=== PATIENT | male | born 1965 | race Caucasian/White ===

== ENCOUNTER 2016-03-17 15:24 | Emergency (ER) | payer BC ==
[~2016-03-17] VITALS: Ht 149.9 cm; Wt 54.6 kg
[2016-03-17 15:42] VITALS: Ht 149.9 cm; Wt 54.6 kg
[2016-03-17] MEDS ORDERED: IBUP-1542 PO (17:39)
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
--- NOTE | 2016-03-17 18:12 | RADRPT ---
PROCEDURE: XR left knee. CLINICAL INDICATION: Knee pain TECHNIQUE: AP, PA and lateral views are available for review. COMPARISON: None available FINDINGS: There is a 4 mm calcified loose body in the posterior joint. The osseous structures are normal in mineralization, architecture and alignment. No fractures are i dentified. No osseous lesions are identified. The joints are unremarkable. The soft tissues are u nremarkable. IMPRESSION: 4 mm calcified loose body in the posterior joint. Otherwise unremarkable examination RPTAT: [facility] .Yon Engle MD, MD Date Time Electronically viewed and signed by .Yon Engle MD, on 03/17/2016 18:03 .B/
--- NOTE | 2016-03-17 18:12 | RADRPT ---
PROCEDURE: XR left forearm. CLINICAL INDICATION: Pain. TECHNIQUE: AP and lateral views of the forearm were obtained. COMPARISON: No prior studies are available for comparison. FINDINGS: There is normal mineralization and alignment. No fracture or osseous lesion is identified. The joint s are unremarkable. The soft tissues are unremarkable. IMPRESSION: Unremarkable examination. RPTAT: [facility] .Yon Engle MD, MD Date Time Electronically viewed and signed by .Yon Engle MD, on 03/17/2016 18:01 .B/
[2016-03-17 18:53] VITALS: BP 128/89; PULSE 78; RESP 16; TEMP 97.9
== END 2016-03-17 18:54 | disposition home or self-care (01) ==
LOC: FTE 15:24
DX: S83.92XA Sprain of unspecified site of left knee, initial encounter (principal); S40.022A Contusion of left upper arm, initial encounter; V03.10XA Pedestrian on foot injured in collision with car, pick-up truck or van in traffic accident, initial encounter
CPT/HCPCS: 73090; 73562